=== PATIENT | male | born 1950 | race Caucasian/White ===

== ENCOUNTER → 2017-02-01 | Outpatient (CLI) | payer MEDICARE ==
--- NOTE | 2017-02-01 12:58 | RAD ---
Indication lung nodule. Noncontrast imaging through the chest was performed. Note is made of a previous examination 04/11/2013. Note is made of plain film exam of the chest 03/19/2015. Imaging through the upper abdomen is unremarkable. There is coronary artery calcification. The thoracic aorta is grossly unremarkable. There are few mediastinal lymph nodes. These are almost certainly incidental. There are similar to the previous exam. Definite pathologic hilar or mediastinal adenopathy is not seen. There is a 3 to 4 mm nodule in the right upper lobe, image 26 series 2, appearing similar to the previous exam. There are scattered small calcified granulomas in the lungs. A dominant soft tissue mass in the chest is not seen. An acute parenchymal infiltrate is not seen. A dominant nodule in the left lung is not seen. IMPRESSION: No acute finding seen in the chest. No dominant soft tissue mass seen. PQRS Compliance Statement: One or more of the following individualized dose reduction techniques were utilized for this examination: 1. Automated exposure control 2. Adjustment of the mA and/or kV according to patient size 3. Use of iterative reconstruction technique
== END | disposition home or self-care (01) ==
LOC: CT 12:23
PROVIDERS: ATTEND Internal Medicine Pulmonary Disease
DX: R91.1 Solitary pulmonary nodule (principal); Z87.891 Personal history of nicotine dependence
CPT/HCPCS: 71250

== ENCOUNTER 2018-07-02 22:18 | Emergency (ER) | payer MEDICARE ==
[~2018-07-02] VITALS: Ht 180.3 cm; Wt 112.2 kg
[2018-07-02] MEDS ORDERED: CITA40TA12 PO (22:42)
[2018-07-02] MEDS ORDERED: LEVO75TA5 PO (22:42)
[2018-07-02] MEDS ORDERED: ATORVASTATIN CA80 MG PO (22:42)
[2018-07-02] MEDS ORDERED: ASPI-630 PO (22:43)
[2018-07-02] MEDS ORDERED: METO25TA4 PO (22:43)
--- NOTE | 2018-07-02 23:15 | RAD ---
Left leg venous Doppler study: Clinical indications: Left leg swelling and pain. Findings: Duplex sonography (including zambrano scale evaluation and color flow and waveform spectral analysis) of the proximal aspect of the greater saphenous vein and the proximal aspect of the profunda femoral vein and the entire length of the common femoral and superficial femoral and popliteal veins and the tibioperoneal trunk and the proximal aspect of the posterior tibial and peroneal veins of the left leg was performed. Normal compressibility, augmentation of color Doppler flow after calf compression, and respiratory variation of Doppler flow is seen. Thus, there are no sonographic findings of deep venous thrombosis within these veins. Impression: There are no sonographic findings of deep venous thrombosis within the veins discussed above of the left lower extremity. Electronically signed by: Laith Jack MD (07/02/2018 11:12 PM) [facility]
--- NOTE | 2018-07-02 23:24 | PHYS DOC ---
Adult General Chief Complaint Chief Complaint: LOWER EXT PAIN HPI HPI 68-year-old male presents with left lower leg pain. The patient has had some trouble with his left knee and hip for several weeks. He started physical therapy and his hip has improved. Continues to have some knee discomfort. He presents tonight because he was unable to fall sleep due to the discomfort in the left posterior knee. He describes it as a pins and needles were crawling feeling. It intermittently alternates with a deep ache. Patient denies previous DVT. He has not been any long car or plane rides. He does not sit still for multiple hours. He tells me "I am up and down all the time". He denies fever or chills. Review of Systems Review of Systems Constitutional: Denies fever or chills [] Eyes: Denies change in visual acuity, redness, or eye pain [] HENT: Denies nasal congestion or sore throat [] Respiratory: Denies cough or shortness of breath [] Cardiovascular: No additional information not addressed in HPI [] GI: Denies abdominal pain, nausea, vomiting, bloody stools or diarrhea [] : Denies dysuria or hematuria [] Musculoskeletal: Left lower extremity pain[] Integument: Denies rash or skin lesions [] Neurologic: Denies headache, focal weakness or sensory changes [] Endocrine: Denies polyuria or polydipsia [] All other systems were reviewed and found to be within normal limits, except as documented in this note. Allergies Allergies Allergies Coded Allergies Type Severity Reaction Last Updated Verified No Known Drug Allergies 07/02/18 No Physical Exam Physical Exam Constitutional: Well developed, well nourished, no acute distress, non-toxic appearance. [] HENT: Normocephalic, atraumatic, bilateral external ears normal, oropharynx moist, no oral exudates, nose normal. [] Eyes: PERRLA, EOMI, conjunctiva normal, no discharge. [] Neck: Normal range of motion, no tenderness, supple, no stridor. [] Cardiovascular:Heart rate regular rhythm, no murmur [] Lungs & Thorax: Bilateral breath sounds clear to auscultation [] Abdomen: Bowel sounds normal, soft, no tenderness, no masses, no pulsatile masses. [] Skin: Warm, dry, no erythema, no rash. [] Back: No tenderness, no CVA tenderness. [] Extremities: Tenderness of the lateral posterior left knee. No obvious increased diameter of the left calf. Negative Homans sign.[] Neurologic: Alert and oriented X 3, normal motor function, normal sensory function, no focal deficits noted. [] Psychologic: Affect normal, judgement normal, mood normal. [] EKG EKG [] Radiology/Procedures Radiology/Procedures [] Impressions: Left leg venous Doppler study: Clinical indications: Left leg swelling and pain. Findings: Duplex sonography (including zambrano scale evaluation and color flow and waveform spectral analysis) of the proximal aspect of the greater saphenous vein and the proximal aspect of the profunda femoral vein and the entire length of the common femoral and superficial femoral and popliteal veins and the tibioperoneal trunk and the proximal aspect of the posterior tibial and peroneal veins of the left leg was performed. Normal compressibility, augmentation of color Doppler flow after calf compression, and respiratory variation of Doppler flow is seen. Thus, there are no sonographic findings of deep venous thrombosis within these veins. Impression: There are no sonographic findings of deep venous thrombosis within the veins discussed above of the left lower extremity. Electronically signed by: Vince Jack MD (07/02/2018 11:12 PM) [facility] DICTATED AND SIGNED BY: VINCE JACK MD DATE: 07/02/182309 CC: CHARITO BLOCK DO; ENRIQUE WOLFE MD Course & Med Decision Making Course & Med Decision Making Pertinent Labs and Imaging studies reviewed. (See chart for details) The patient's lower extremity ultrasound is negative for DVT. There was no notation of a cyst or other obvious structure at the knee. The patient may have new onset restless leg syndrome or ligamental discomfort stemming from his existing hip problems and ambulatory compensation for such. I have advised that he follow-up with his PCP for further management. He is not taking any NSAIDs today so I will give him 500 mg and naproxen and a single 100 mg dose of gabapentin as a trial to see if that helps with his pain. He will discuss restless leg syndrome with his PCP this week. The patient is stable for discharge. [] Dragon Disclaimer Dragon Disclaimer This electronic medical record was generated, in whole or in part, using a voice recognition dictation system. Departure Departure: Referrals: ENRIQUE WOLFE MD (PCP) CHARITO BLOCK DO Jul 02, 2018 23:24
[2018-07-02] MEDS ORDERED: GABAPENTIN 100 MG CAPSULE. PO ONE ×2 (23:44→23:45)
[2018-07-02] MEDS ORDERED: NAPROXEN 500 MG TABLET ONE (23:44)
[2018-07-02] MEDS ORDERED: NAPROXEN 500 MG TABLET PO ONE (23:45)
[2018-07-03] VITALS: BP 137/53
== END 2018-07-03 | disposition home or self-care (01) ==
LOC: ER 22:18
DX: M79.662 Pain in left lower leg (principal); R22.42 Localized swelling, mass and lump, left lower limb; M25.562 Pain in left knee
CPT/HCPCS: 93971; 99284-25

== ENCOUNTER 2018-07-17 20:12 | Emergency (ER) | payer MEDICARE ==
[~2018-07-17] VITALS: Ht 180.3 cm; Wt 115.7 kg
[~2018-07-17 20:12] MED LIST: ASPI-630 PO; ATORVASTATIN CA80 MG PO; CITA40TA12 PO; LEVO75TA5 PO; METO25TA4 PO
--- NOTE | 2018-07-17 20:55 | RAD ---
3 views left knee and 2 views left tibia-fibula dated 07/17/2018. No comparison available. Clinical data indication: Pain after fall. FINDINGS: 3 views left knee show normal bony alignment. No displaced fracture. Mild tricompartmental hypertrophic change with small marginal osteophytes. Small joint effusion. No definite loose body. 2 views left tibia fibula show normal bony alignment. No displaced fracture. No acute osseous or articular abnormality. No periostitis or bone destruction. IMPRESSION: 1. No acute bony abnormality. 2. Suspect small knee joint effusion. If there is clinical concern for internal derangement or occult fracture, MRI would better evaluate. 3. 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 Electronically signed by: Luis M Vargas MD (07/17/2018 8:51 PM) [facility]
[2018-07-17] MEDS ORDERED: HYDROcodone/APAP 5/325MG 1 TAB TABLET PO ONE (21:00)
--- NOTE | 2018-07-17 21:13 | PHYS DOC ---
Adult General Chief Complaint Chief Complaint knee pain HPI HPI 68 gentleman fell on his left knee a week ago his been walking on it noticed swelling and ecchymosis around the left knee with tenderness is getting worse no restriction of movement Review of Systems Review of Systems Constitutional: Denies fever or chills [] Eyes: Denies change in visual acuity, redness, or eye pain [] HENT: Denies nasal congestion or sore throat [] Respiratory: Denies cough or shortness of breath [] Cardiovascular: No additional information not addressed in HPI [] GI: Denies abdominal pain, nausea, vomiting, bloody stools or diarrhea [] : Denies dysuria or hematuria [] Musculoskeletal: Denies back pain Integument: Denies rash or skin lesions [] Neurologic: Denies headache, focal weakness or sensory changes [] Endocrine: Denies polyuria or polydipsia [] All other systems were reviewed and found to be within normal limits, except as documented in this note. Current Medications Current Medications Current Medications Medications (Trade) Dose Ordered Sig/Elisa Start Time Stop Time Status Last Admin Dose Admin Acetaminophen/ Hydrocodone Bitart (Lortab 5/325) 2 tab 1X ONCE 07/17/18 21:00 07/17/18 21:01 DC 07/17/18 20:45 2 TAB Allergies Allergies Allergies Coded Allergies Type Severity Reaction Last Updated Verified No Known Drug Allergies 07/02/18 No Physical Exam Physical Exam Constitutional: Well developed, well nourished, no acute distress, non-toxic appearance. [] HENT: Normocephalic, atraumatic, bilateral external ears normal, oropharynx moist, no oral exudates, nose normal. [] Eyes: PERRLA, EOMI, conjunctiva normal, no discharge. [] Neck: Normal range of motion, no tenderness, supple, no stridor. [] Cardiovascular:Heart rate regular rhythm, no murmur [] Lungs & Thorax: Bilateral breath sounds clear to auscultation [] Abdomen: Bowel sounds normal, soft, no tenderness, no masses, no pulsatile masses. [] Skin: Warm, dry, no erythema, no rash. [] Back: No tenderness, no CVA tenderness. [] Extremities: Tender swollen ecchymosis on the left knee Neurologic: Alert and oriented X 3, normal motor function, normal sensory function, no focal deficits noted. [] Psychologic: Affect normal, judgement normal, mood normal. [] Current Patient Data Vital Signs Vital Signs Date Time Temp Pulse Resp B/P (MAP) Pulse Ox O2 Delivery O2 Flow Rate FiO2 07/17/18 20:45 18 98 Room Air 07/17/18 20:30 98.2 99 EKG EKG [] Radiology/Procedures Radiology/Procedures [] Course & Med Decision Making Course & Med Decision Making Pertinent Labs and Imaging studies reviewed. (See chart for details) [] Final Impression Final Impression [] Problems: (1) Contusion of left knee Qualifiers: Qualified Codes: S80.02XA - Contusion of left knee, initial encounter Dragon Disclaimer Dragon Disclaimer This electronic medical record was generated, in whole or in part, using a voice recognition dictation system. MARGO AGRAWAL MD Jul 17, 2018 21:13
[2018-07-17] MEDS ORDERED: HYDR-3165 PO (21:14)
[2018-07-17 23:05] VITALS: BP 134/89
--- NOTE | 2018-07-17 23:12 | RAD ---
Examination: Lower Extremity Venous Doppler Ultrasound History: Left posterior knee pain Comparison: None Procedure: Anders scale, color flow 2D and spectal waveform analysis images are obtained with and without compression in the area of the common femoral vein, superficial femoral vein - femoral vein junction, main femoral vein (superficial femoral vein) and popliteal vein. Veins of the proximal calf are also imaged. Findings: There is normal duplex flow, color flow and compressibility of all visualized vein segments. No evidence of deep venous thrombus is present. There is echogenicity identified in the lesser saphenous vein from the proximal to the midportion could be superficial vein thrombosis. Impression: 1. No evidence of DVT. 2. There is echogenicity identified in the lesser saphenous vein from the proximal to the midportion could be superficial vein thrombosis. Electronically signed by: Doe Buckner MD (07/17/2018 11:09 PM) [facility]
== END 2018-07-17 23:05 | disposition home or self-care (01) ==
LOC: ER 20:12
DX: S80.02XA Contusion of left knee, initial encounter (principal); I80.8 Phlebitis and thrombophlebitis of other sites; W18.30XA Fall on same level, unspecified, initial encounter; Y93.89 Activity, other specified; Y92.89 Other specified places as the place of occurrence of the external cause; Y99.8 Other external cause status
CPT/HCPCS: 29505; 73562; 73590; 93971; 99284

== ENCOUNTER 2018-12-11 07:46 | Emergency (ER) | payer MEDICARE, OTHER ==
[~2018-12-11] VITALS: Ht 180.3 cm; Wt 112.5 kg
[~2018-12-11 07:46] MED LIST changes: +HYDR-3165 PO
[2018-12-11] MEDS ORDERED: IV NORMAL SALINE 1,000ML 1,000 ML IV ONE (08:15)
[2018-12-11] MEDS ORDERED: MORPHINE SULFATE 4 MG/ML DISP.SYRIN. IV ONE ×2 (08:15→09:45)
[2018-12-11] MEDS ORDERED: ONDANSETRON PF 4 MG/2 ML VIAL. IV ONE (08:15)
[2018-12-11] MEDS ORDERED: diazePAM 5 MG TABLET PO ONE (08:15)
--- NOTE | 2018-12-11 08:29 | PHYS DOC ---
Past History Past Medical History: CAD, Depression, High Cholesterol, Hypothyroid Past Surgical History: Tonsillectomy, Other Alcohol Use: Heavy Drug Use: None Adult General Chief Complaint Chief Complaint: LOWER EXT PAIN HPI HPI 68-year-old male presents with right hip and low back pain. The patient states he is having spasms in his right hip. He has had these before. He is unsure what brings them on. He states that from time to time he'll just start getting this cramping pain in the right posterior hip. Sometimes it will subside, and other times just keep going. He has no arthritis in his knee and back, but does not recall having imaging of his hip. He has had lumbar surgery in the past. He denies numbness or tingling down his legs. He has no loss of bowel or bladder. He is able to walk, but it hurts. He has cyclobenzaprine prescribed, but has not taken any. He denies fever or chills. He denies any new trauma or injury. Review of Systems Review of Systems Constitutional: Denies fever or chills [] Eyes: Denies change in visual acuity, redness, or eye pain [] HENT: Denies nasal congestion or sore throat [] Respiratory: Denies cough or shortness of breath [] Cardiovascular: No additional information not addressed in HPI [] GI: Denies abdominal pain, nausea, vomiting, bloody stools or diarrhea [] : Denies dysuria or hematuria [] Musculoskeletal: Right hip pain[] Integument: Denies rash or skin lesions [] Neurologic: Denies headache, focal weakness or sensory changes [] Endocrine: Denies polyuria or polydipsia [] All other systems were reviewed and found to be within normal limits, except as documented in this note. Current Medications Current Medications Current Medications Medications (Trade) Dose Ordered Sig/Elisa Start Time Stop Time Status Last Admin Dose Admin Diazepam (Valium) 5 mg 1X ONCE 12/11/18 08:15 12/11/18 08:17 DC Morphine Sulfate (Morphine 4mg Syringe) 2 mg 1X ONCE 12/11/18 08:15 12/11/18 08:17 DC Ondansetron HCl (Zofran) 4 mg 1X ONCE 12/11/18 08:15 12/11/18 08:17 DC Sodium Chloride 1,000 ml @ 1,000 mls/hr 1X ONCE 4/14/19 08:15 12/11/18 09:14 Allergies Allergies Allergies Coded Allergies Type Severity Reaction Last Updated Verified No Known Drug Allergies 07/02/18 No Physical Exam Physical Exam Constitutional: Well developed, well nourished, mild acute distress, non-toxic appearance. [] HENT: Normocephalic, atraumatic, bilateral external ears normal, oropharynx moist, no oral exudates, nose normal. [] Eyes: PERRLA, EOMI, conjunctiva normal, no discharge. [] Neck: Normal range of motion, no tenderness, supple, no stridor. [] Cardiovascular:Heart rate regular rhythm, no murmur [] Lungs & Thorax: Bilateral breath sounds clear to auscultation [] Abdomen: Bowel sounds normal, soft, no tenderness, no masses, no pulsatile masses. [] Skin: Warm, dry, no erythema, no rash. [] Back: No tenderness, no CVA tenderness. [] Extremities: No tenderness, no cyanosis, no clubbing, ROM intact, no edema. No tenderness with palpation of the hip or low back. [] Neurologic: Alert and oriented X 3, normal motor function, normal sensory function, no focal deficits noted. [] Psychologic: Affect normal, judgement normal, mood normal. [] Current Patient Data Vital Signs Vital Signs Date Time Temp Pulse Resp B/P (MAP) Pulse Ox O2 Delivery O2 Flow Rate FiO2 12/11/18 07:56 97.7 69 20 100 Room Air EKG EKG [] Radiology/Procedures Radiology/Procedures [] Impressions: Right hip 2 views with one view pelvis. HISTORY: Pain, recent fall Single view was taken of the pelvis. A pelvic fracture is not identified. A left hip fracture is not evident. AP and lateral views were taken of the right hip. There is no fracture or acute osseous abnormality. IMPRESSION: 1. No fracture noted in the pelvis. 2. No right hip fracture noted. Electronically signed by: Tello Sahu MD (12/11/2018 9:38 AM) [facility] DICTATED AND SIGNED BY: TELLO SAHU MD DATE: 12/11/18 0938 CC: CHARITO BLOCK DO; RYLEY EBTANCUR DO Course & Med Decision Making Course & Med Decision Making Pertinent Labs and Imaging studies reviewed. (See chart for details) Patient's x-rays are negative for fracture or acute dislocation. After 2 mg of morphine IV and 5 mg of Valium by mouth, the patient still had considerable pain. I gave him an additional 4 mg. This helped, but he still had intermittent spasm. On reexamination, the patient appears to have his pain centered over the right sacroiliac joint. He denies numbness or tingling in the legs. It does not sound like lumbar nerve compression. This could be sacroiliitis due to his abnormal gait. 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 I will give the patient 125 of Solu-Medrol in the ED followed by 4 more days of by mouth steroids to see if this helps. I have also advised that he follow-up with his lumbar spine surgeon as well as orthopedics in relation to the knee. Discharge him with [place] 5/325, Valium, and prednisone. Review the narcotic tracking it was only shows 3 prescriptions in the last year. Most recent was 2 months ago for tylenol #3. He is stable for discharge at this time. [] Dragon Disclaimer Dragon Disclaimer This electronic medical record was generated, in whole or in part, using a voice recognition dictation system. Departure Departure: Impression: Primary Impression: Inflammation of right sacroiliac joint Disposition: 01 HOME, SELF-CARE Condition: STABLE Referrals: RYLEY BETANCUR DO (PCP) Patient Instructions: Sacroiliac Joint Dysfunction Scripts Diazepam (VALIUM) 10 Mg Tablet 10 MG PO BID PRN for MUSCLE SPASMS for 5 Days, #10 TAB Prov: CHARITO BLOCK DO 12/11/18 Prednisone (PREDNISONE) 10 Mg Tablet 50 MG PO DAILY for sacroiliitis for 4 Days, #20 TAB Prov: CHARITO BLOCK DO 12/11/18 Hydrocodone Bit/Acetaminophen (NORCO 5-325 TABLET) 1 Each Tablet 1 TAB PO PRN Q6HRS PRN for PAIN, #14 TAB 0 Refills Prov: CHARITO BLOCK DO 12/11/18 CHARITO BLOCK DO Dec 11, 2018 08:29
[2018-12-11 08:40] LABS: BASO # 0.1 x10^3/uL (0.0-0.2); BASO % 1 % (0-3); EOS # 0.3 x10^3/uL (0.0-0.7); EOS % 4 % (0-3); HEMATOCRIT 44.8 % (39.0-53.0); HEMOGLOBIN 15.1 g/dL (13.0-17.5); LYMPH # 1.6 x10^3/uL (1.0-4.8); LYMPH % 23 % (24-48); MEAN CORPUSCULAR HEMOGLOBIN 34 pg (25-35); MEAN CORPUSCULAR HGB CONC 34 g/dL (31-37); MEAN CORPUSCULAR VOLUME 99 fL (79-100); MONO # 0.8 x10^3/uL (0.0-1.1); MONO % 11 % (0-9); NEUT # 4.3 x10^3uL (1.8-7.7); NEUT % 62 % (31-73); PLATELET COUNT 253 x10^3/uL (140-400); RED BLOOD COUNT 4.52 x10^6/uL (4.30-5.70); RED CELL DISTRIBUTION WIDTH 13.2 % (11.5-14.5)
[2018-12-11 08:55] LABS: CALCIUM 9.2 mg/dL (8.5-10.1); CREATININE 1.2 mg/dL (0.7-1.3); GFR 60.2; POTASSIUM 4.4 mmol/L (3.5-5.1); TOTAL BILIRUBIN 0.4 mg/dL (0.2-1.0)
[2018-12-11 09:06] LABS: BACTERIA,URINE 0 /HPF (0-FEW); BILIRUBIN,URINE NEG (NEG); CLARITY,URINE CLEAR; COLOR,URINE YELLOW; GLUCOSE,URINE NEG (NEG); NITRITE,URINE NEG (NEG); RBC,URINE 0 /HPF (0-2); UROBILINOGEN,URINE 0.2 mg/dL (0.2 mg/dL); WBC,URINE 0 /HPF (0-4)
--- NOTE | 2018-12-11 09:41 | RAD ---
Right hip 2 views with one view pelvis. HISTORY: Pain, recent fall Single view was taken of the pelvis. A pelvic fracture is not identified. A left hip fracture is not evident. AP and lateral views were taken of the right hip. There is no fracture or acute osseous abnormality. IMPRESSION: 1. No fracture noted in the pelvis. 2. No right hip fracture noted. Electronically signed by: Tello Smith MD (12/11/2018 9:38 AM) [facility]
[2018-12-11] MEDS ORDERED: HYDR-3165 PO (11:11)
[2018-12-11] MEDS ORDERED: DIAZ10TA PO (11:11)
[2018-12-11] MEDS ORDERED: PRED-220 PO (11:11)
[2018-12-11] MEDS ORDERED: methylPREDNISolone SOD SUCC PF 125 MG/2 ML VIAL. IV ONE (11:15)
[2018-12-11] MEDS ORDERED: HYDROcodone/APAP 5/325MG 1 TAB TABLET PO ONE (11:15)
[2018-12-11 11:30] VITALS: BP 158/82
== END 2018-12-11 11:30 | disposition home or self-care (01) ==
LOC: ER 07:46
DX: M46.1 Sacroiliitis, not elsewhere classified (principal); I25.10 Atherosclerotic heart disease of native coronary artery without angina pectoris; F32.9 Major depressive disorder, single episode, unspecified; E78.00 Pure hypercholesterolemia, unspecified; E03.9 Hypothyroidism, unspecified
CPT/HCPCS: 36415; 73502; 80053; 81001; 85025; 96374; 96375; 96376; 99284; J2270; J2405; J2930; J7030

== ENCOUNTER 2020-06-07 15:04 | Emergency (ER) | payer OTHER, MEDICAID ==
[~2020-06-07] VITALS: Ht 182.9 cm; Wt 111.3 kg
[~2020-06-07 15:04] MED LIST changes: +DIAZ10TA PO; +PRED-220 PO
[2020-06-07] MEDS ORDERED: IV NORMAL SALINE 1,000ML 1,000 ML IV ONE (15:15)
[2020-06-07 15:32] VITALS: BP 142/81
--- NOTE | 2020-06-07 15:54 | RAD ---
Single view chest dated 2019. Comparison made to 03/19/2015. CLINICAL INDICATION: Chest pain. FINDINGS: Single upright portal exam performed. Heart and mediastinal contours are stable. Lungs are clear. No consolidation or pleural effusion. No pneumothorax. IMPRESSION: No acute radiographic abnormality. Electronically signed by: Luis M Vargas MD (06/07/2020 3:51 PM) [facility]
--- NOTE | 2020-06-07 16:03 | PHYS DOC ---
Past History Past Medical History: High Cholesterol, Hypertension, Hypothyroid Past Surgical History: Other Additional Past Surgical Histo: KNEE REPLACEMENT Alcohol Use: None Drug Use: None General Adult EDM: Chief Complaint: CHEST PAIN HPI: HPI: 70-year-old male presents with chest pain. Patient has been having chest tightness for at least a couple of days. He actually states having some chest pressure off and on for "quite some time". He had a stress test October 2019. He states that they are watching a few vessels but no interventions were taken. He had his metoprolol dose increased about 4 months ago. Patient is feeling fatigued and has had some shortness of breath with exertion but it does not make the chest pain worse. He denies fever or chills. Review of Systems: Review of Systems: Constitutional: Denies fever or chills Eyes: Denies change in visual acuity HENT: Denies nasal congestion or sore throat Respiratory: Shortness of breath Cardiovascular: Chest pain GI: Denies abdominal pain, nausea, vomiting, bloody stools or diarrhea : Denies dysuria Musculoskeletal: Denies back pain or joint pain Integument: Denies rash Neurologic: Denies headache, focal weakness or sensory changes Endocrine: Denies polyuria or polydipsia Lymphatic: Denies swollen glands Psychiatric: Denies depression or anxiety Heart Score: HEART Score for Chest Pain: HEART Score for Chest Pain Response (Comments) Value History Slighlty/Non-Suspicious 0 Age > 65 2 Risk Factors >3 Risk Factors or Hx CAD 2 Troponin < Normal Limit 0 Total 4 Risk Factors: Risk Factors: DM, Current or recent (<one month) smoker, HTN, HLP, family history of CAD, obesity. Risk Scores: Score 0 - 3: 2.5% MACE over next 6 weeks - Discharge Home Score 4 - 6: 20.3% MACE over next 6 weeks - Admit for Clinical Observation Score 7 - 10: 72.7% MACE over next 6 weeks - Early Invasive Strategies Current Medications: Current Meds: Current Medications Medications (Trade) Dose Ordered Sig/Elisa Start Time Stop Time Status Last Admin Dose Admin Sodium Chloride 1,000 ml @ 1,000 mls/hr 1X ONCE 06/07/20 15:15 06/07/20 16:14 Allergies: Allergies: Allergies Coded Allergies Type Severity Reaction Last Updated Verified No Known Drug Allergies 07/02/18 No Physical Exam: PE: Constitutional: Well developed, well nourished, obese, no acute distress, non- toxic appearance. [] HENT: Normocephalic, atraumatic, bilateral external ears normal, oropharynx moist, no oral exudates, nose normal. [] Eyes: PERRLA, EOMI, conjunctiva normal, no discharge. [] Neck: Normal range of motion, no tenderness, supple, no stridor. [] Cardiovascular: Heart rate 78, regular rhythm, no murmur [] Lungs & Thorax: Bilateral breath sounds clear to auscultation [] Abdomen: Bowel sounds normal, soft, no tenderness, no masses, no pulsatile masses. [] Skin: Warm, dry, no erythema, no rash. [] Back: No tenderness, no CVA tenderness. [] Extremities: No tenderness, no cyanosis, no clubbing, ROM intact, no edema. [] Neurologic: Alert and oriented X 3, normal motor function, normal sensory function, no focal deficits noted. [] Psychologic: Affect normal, judgement normal, mood very anxious. [] Current Patient Data: Vital Signs: Vital Signs Date Time Temp Pulse Resp B/P (MAP) Pulse Ox O2 Delivery O2 Flow Rate FiO2 06/07/20 15:32 98.0 82 24 142/81 (101) 97 EKG: EKG: Sinus rhythm, rate 78, normal axis, no ST elevation or depression. [] Radiology/Procedures: Radiology/Procedures: [] Impressions: Single view chest dated 2019. Comparison made to 03/19/2015. CLINICAL INDICATION: Chest pain. FINDINGS: Single upright portal exam performed. Heart and mediastinal contours are stable. Lungs are clear. No consolidation or pleural effusion. No pneumothorax. IMPRESSION: No acute radiographic abnormality. Electronically signed by: Luis M Vargas MD (06/07/2020 3:51 PM) [facility] DICTATED AND SIGNED BY: LUIS M VARGAS MD DATE: 06/07/20 155 CC: CHARITO BLOCK DO; RYLEY BETANCUR DO ~ Course & Med Decision Making: Course & Med Decision Making Pertinent Labs and Imaging studies reviewed. (See chart for details) The patient's labs are unremarkable. His troponin is normal. His EKG is negative for acute findings. His chest x-ray is negative for acute findings. Patient's heart score is 4. I talked with the patient about this and he wants to go home. I explained that there is some risk in this and he is okay with that. If his condition worsens he will come back to this hospital or go to another hospital. He is stable for discharge at this time. [] Dragon Disclaimer: Dragon Disclaimer: This electronic medical record was generated, in whole or in part, using a voice recognition dictation system. Departure Departure: Impression: Primary Impression: Chest pain Qualified Codes: R07.9 - Chest pain, unspecified Disposition: 01 DC HOME SELF CARE/HOMELESS Condition: STABLE Referrals: RYLEY BETANCUR DO (PCP) Patient Instructions: Chest Pain (Nonspecific), [id number] CHARITO BLOCK DO Jun 07, 2020 16:03
[2020-06-07 16:10] LABS: BASO # 0.1 x10^3/uL (0.0-0.2); BASO % 1 % (0-3); EOS # 0.4 x10^3/uL (0.0-0.7); EOS % 4 % (0-3); HEMOGLOBIN 14.9 g/dL (13.0-17.5); LYMPH % 22 % (24-48); MEAN CORPUSCULAR HEMOGLOBIN 33 pg (25-35); MEAN CORPUSCULAR HGB CONC 33 g/dL (31-37); MEAN CORPUSCULAR VOLUME 100 fL (79-100); MONO # 1.3 x10^3/uL (0.0-1.1); MONO % 15 % (0-9); NEUT # 5.2 x10^3uL (1.8-7.7); NEUT % 58 % (31-73); PLATELET COUNT 251 x10^3/uL (140-400); RED BLOOD COUNT 4.51 x10^6/uL (4.30-5.70); RED CELL DISTRIBUTION WIDTH 13.1 % (11.5-14.5); WHITE BLOOD COUNT 8.9 x10^3/uL (4.0-11.0)
[2020-06-07 16:17] LABS: BILIRUBIN,URINE NEG (NEG); CLARITY,URINE CLEAR; COLOR,URINE STRAW; GLUCOSE,URINE NEG (NEG)
[2020-06-07 16:18] LABS: BACTERIA,URINE 0 /HPF (0-FEW); NITRITE,URINE NEG (NEG); RBC,URINE 0 /HPF (0-2); SQUAMOUS EPITHELIAL CELL,UR OCC /LPF; UROBILINOGEN,URINE 0.2 mg/dL (0.2 mg/dL); WBC,URINE 0 /HPF (0-4)
--- NOTE | 2020-06-07 16:18 | EKG ---
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
[2020-06-07 16:19] LABS: CALCIUM 9.5 mg/dL (8.5-10.1); CREATININE 0.9 mg/dL (0.7-1.3); GFR 83.4; POTASSIUM 3.8 mmol/L (3.5-5.1)
[2020-06-07 16:26] LABS: ALBUMIN 4.1 g/dL (3.4-5.0); TOTAL BILIRUBIN 0.2 mg/dL (0.2-1.0); TOTAL PROTEIN 8.2 g/dL (6.4-8.2)
[2020-06-07 17:01] LABS: % BANDS 2 % (0-9); % EOS 3 % (0-5); % LYMPHS 21 % (24-48); % MONOS 12 % (0-10); % SEGS 62 % (35-66); PLT ESTIMATE ADEQUATE (ADEQUATE)
== END 2020-06-07 17:10 | disposition home or self-care (01) ==
LOC: ER 15:04
DX: R07.89 Other chest pain (principal); R06.02 Shortness of breath; E78.00 Pure hypercholesterolemia, unspecified; I10 Essential (primary) hypertension; E03.9 Hypothyroidism, unspecified
CPT/HCPCS: 36415; 71045; 80053; 81001; 83880; 84484; 85007; 85025; 93005; 96360; 99285; J7030; 96361; 96374